=== PATIENT | male | born 1950 | race Caucasian/White ===

== ENCOUNTER 2019-07-29 10:31 | Observation (INO) | payer MEDICARE, OTHER, SELFPAY ==
[2019-07-29] VITALS (8 sets, daily range): BP systolic 135–179; BP diastolic 77–102; PULSE 60–75; RESP 11–18; TEMP 36.5–36.7; O2SAT 94–98; BMI 30.5; BMI 31.1
[2019-07-29] MEDS: 0.9% Normal Saline 1,000 ML 500 ML IV (10:32)
[2019-07-29 10:41] LABS: Bedside Glucose 105 mg/dL (70-110)
--- NOTE | 2019-07-29 10:44 | CT_ITS ---
STUDY: CT BRAIN WITHOUT CONTRAST REASON FOR EXAM: Male, 69 years old. Left-sided weakness. Near syncopal episode. RADIATION DOSAGE (If Supplied By Facility): CTDIvol = ( 44.99 ) mGy, DLP = ( 812.98 ) mGycm TECHNIQUE: Transaxial CT imaging of the brain was performed without administration of intravenous contrast material. Individualized dose optimization techniques were used for this CT. COMPARISON: No relevant priors. FINDINGS: Normal soft tissue structures. Normal calvarium. Normal size ventricles and extra-axial spaces for the patient's age. Normal white matter tracts of the cerebral hemispheres. Normal basal ganglia and thalami. Normal brainstem. Normal cerebellum. There is no intracranial hemorrhage. There are no findings of an acute ischemic infarction. There is opacification of the left maxillary sinus. CT/Brain/Head without Contrast IMPRESSION: Normal unenhanced CT scan of the brain. Opacification of the left maxillary sinus. Electronically Signed: Caio Carey, at 11:17 EDT , Service support ,
--- NOTE | 2019-07-29 10:44 | EKG12_ITS ---
Test Reason : NEURO SYMPTOMS Blood Pressure : / mmHG Vent. Rate : 066 BPM Atrial Rate : 066 BPM P-R Int : 132 ms QRS Dur : 084 ms QT Int : 414 ms P-R-T Axes : 000 014 020 degrees QTc Int : 434 ms Normal sinus rhythm Normal ECG Confirmed by CHICO DELA CRUZ, SUSHANT ([id number]), scientific editor BRIA TRISTAN ([id number]) on 07/31/2019 10:24:16 A M Referred By: SHEILA/SHAHEED Confirmed By:FABIOLA GOLDEN MD
--- NOTE | 2019-07-29 11:09 | ED.VISSUMM ---
- ER Visit Summary Date of Service: 07/29/19 Chief Complaint: Sudden onset of left facial and arm numbness with near syncope History of Present Illness: The patient is a 69 M 3 of reflux and hypertension. No prior stroke or TIA. Patient states that he was driving around 930 this morning and had sudden onset of left facial numbness and left arm. [place] like he might pass out but did not pass out. And had to stop driving his car. May or may not had some less visual changes since resolved. Never had anything like this before. Denies any headache. No chest pain. No abdominal pain. No shortness of breath. Prior to the event he felt fine. He is improving but states he still does have some mild numbness to his left face and arm. Denies any weakness. Physical Examination: Older male no acute distress vital signs are stable afebrile. Initial blood pressure 179/102. He does not look septic or toxic. He is in no distress. There is multiple family members at bedside. HEENT exam pupils are unreactive light. Extra motions are intact. No facial droop. Able to open close mouth any difficulty. Able to puff out his cheeks bilaterally. Neck nontender. No bruits appreciated. Lungs clear to auscultation bilaterally. Heart regular rhythm no murmur. Rate about 70. Abdomen soft nontender normal bowel sounds no peritoneal signs. Patient moving all 4 extremities. There is no motor weakness. He has 5-5 parts cataloguer strength bilaterally. 5 out of 5 dorsi plantar flexion. He can raise and hold both upper extremities and lower extremities in the ER without any drift. Subjectively he states there is some mild numbness to his left arm. Neurologically is awake and alert. Normal speech. No facial droop. External motions are intact. Equal symmetrical parts cataloguer strength. Equal symmetrical dorsi plantarflexion. No ataxia with [id number] or [id number]. Subjectively again he has no numbness to left side of his face without a facial droop. And his left arm. No motor deficits. He is awake and alert. Acting appropriately. NIH score is at most 8 1 NS due to subjective numbness in his left upper extremity and face. Test Results: CBC normal white count of 5. Hemoglobin 15. Chemistries normal normal creatinine gap. Troponin normal. EKG normal sinus rhythm rate 66 with no acute signs of dysrhythmia nor CT nor ischemia. CT of the brain without contrast shows no acute abnormality. Some left maxillary sinus opacification. Read by the radiologist and reviewed by me. Portable chest x-ray one view read by myself shows no acute abnormality. Normal cardiac silhouette and mediastinum. Emergency Department Course and Treatment: Patient has basically a normal exam except for subjective numbness. He is already obtained a CAT scan which I reviewed waiting on the radiologist interpretation. Screening labs are being obtained. He will need to be admitted for further evaluation. At this time his NIH score is at most a 1. His symptoms are improving. Repeat exam patient is doing well at 11:55 AM. He is actually feeling better his exam is not changed. He still states he has some subjective numbness to his left face and arm but he has no motor weakness or droop and his NIH score again is 0-1 at worst. I discussed all test results of both he and his family. Treatment Plan: Hospitalist on page for admission for further evaluation. Disposition: Admission Impression: Acute left-sided facial and arm numbness of uncertain etiology This note was generated with [employer] dictation software. It may contain incorrect words, spelling, and punctuation that were not noted in review of the chart prior to signing ED Disposition - Plan for ED Patient: Referrals: Jhonny Centeno DO [Primary Care Provider] -
[2019-07-29 11:13] LABS: Absolute Lymphocyte Count 1.92 X10^3/uL (0.83-4.51); Absolute Neutrophil Count 3.4 X10^3/uL (2.0-7.7); Basophil# 0.05 X10^3/uL; Basophil% 0.8 % (0-1); Eosinophil# 0.04 X10^3/uL; Eosinophils% 0.7 % (0-5); Hematocrit 45.7 % (40-54); Hemoglobin 15.7 g/dL (13.0-16.5); Lymphocyte # 1.92 X10^3/ul (4.0); Lymphocyte % 32.4 % (19-41); Mean Corp Hgb Conc 34.4 g/dL (32-36); Mean Corpuscular Hgb 30.7 pg (27.0-32.0); Mean Corpuscular Volume 89.4 fL (80-94); Mean Platelet Vol. 8.4 fl (6.2-12.0); Monocyte# 0.51 X10^3/uL; Monocyte% 8.6 % (0-10); NRBC Flagged by Analyzer 0 % (0-5); Neutrophil # 3.37 X10^3/uL (2.7-7.7); Platelet Count 221 K/mm3 (150-450); RBC Distribution Width CV 11.9 % (11.6-14.6); RBC Distribution Width SD 39.4 fl (35.1-43.9); Red Blood Count 5.11 M/mm3 (4.6-6.2); White Blood Count 5.9 K/mm3 (4.4-11.0)
[2019-07-29 11:14] LABS: Anion Gap 4 (5-15); BUN 15 mg/dL (7-18); BUN/Creat Ratio 15.9 RATIO (10-20); Calcium,Total 8.7 mg/dL (8.5-10.1); Chloride 106 mmol/L (98-107); Creatinine, Serum 0.95 mg/dL (0.70-1.30); EST Glomerular Filtration Rate 84 mL/min (>60); Est Glom Filt Rate - Afr Amer 102 mL/min (>60); Estimated Creatinine Clearance 75.45 ml/min; Glucose 93 mg/dL (74-106); Potassium 3.9 mmol/L (3.5-5.1); Sodium Level 138 mmol/L (136-145)
--- NOTE | 2019-07-29 11:48 | RAD_ITS ---
STUDY: X-RAY CHEST REASON FOR EXAM: Male, 69 years old. NEAR SYNCOPE AND LT SIDED NUMBNESS. TECHNIQUE: Single AP portable view of the chest. COMPARISON: November 15, 2017 FINDINGS: Cardiac monitoring leads are present. Low lung volumes noted otherwise the lungs are clear. There is no demonstrated pleural abnormality. Normal size heart. Normal mediastinum and maria fernanda. Normal visualized pulmonary arteries. Normal visualized aortic arch and descending thoracic aorta. Normal visualized thoracic spine. Normal visualized ribs, clavicles, and shoulders. There is no demonstrated abnormality of the visualized soft tissue structures of the upper abdomen. RAD/Chest 1 View (Portable) IMPRESSION: No acute intrathoracic process. Low lung volumes noted. Electronically Signed: Marli Denton MD at 12:25 EDT , Service support ,
[2019-07-29] MEDS: 0.9% Normal Saline 1,000 ML 999 ML IV (11:51)
--- NOTE | 2019-07-29 12:15 | ED.RN ---
per dr. dolan do not continue NIH. pt is not a stroke team.
--- NOTE | 2019-07-29 12:17 | ED.RN ---
1120 pt states that his sensation is returning.
--- NOTE | 2019-07-29 12:29 | CT_ITS ---
STUDY: CTA HEAD AND NECK WITH CONTRAST REASON FOR EXAM: Male, 69 years old. Left-sided weakness. RADIATION DOSAGE (If Supplied By Facility): CTDIvol = ( 17.46 ) mGy, DLP = ( 883.03 ) mGycm TECHNIQUE: CT angiography was performed with a multi-detector CT scanner. Data acquisition was obtained from the skull base through the vertex following intravenous administration of IV Isovue 370 100. MIP images were reconstructed from the axial data set. Post-processing of the angiographic images was performed, with multiplanar reformation and 3D reconstruction. Individualized dose optimization techniques were used for this CT. COMPARISON: No relevant priors. FINDINGS: Normal bilateral petrous carotid arteries. Normal right cavernous carotid artery with a normal supraclinoid bifurcation. Normal left cavernous carotid artery with a normal supraclinoid bifurcation. Normal right A1 segments of the anterior cerebral artery. Normal left A1 segments of the anterior cerebral artery. Normal intact anterior communicating artery (ACOM). Normal bilateral A2 segments of the anterior cerebral arteries. Normal right M1 and M2 segments of the middle cerebral arteries, with a normal M1 bifurcation. Normal left M1 and M2 segments of the middle cerebral arteries, with a normal M1 bifurcation. Normal right posterior communicating artery (PCOM). Normal left posterior communicating artery (PCOM). Normal bilateral vertebral arteries. Normal basilar artery with a normal basilar bifurcation. The visualized bilateral superior cerebellar (SCA) arteries are normal. Normal bilateral P1, P2 and visualized P3 segments of the posterior cerebral arteries. There is no demonstrated aneurysm of the [place] of [place]. There is no demonstrated abnormality of the visualized brain. AORTIC ARCH: Normal visualized aortic arch. Normal origins of the brachiocephalic, left common carotid, and left subclavian arteries. RIGHT CAROTID ARTERIES: Normal right common carotid artery (CCA). Normal right common carotid bulb. Normal origin of the right internal carotid (ICA) artery without a hemodynamically significant stenosis. Normal visualized cervical portion of the right internal carotid artery. Normal origin of the right external carotid artery (ECA). LEFT CAROTID ARTERIES: Normal left common carotid artery (CCA). Normal left common carotid bulb. There is mild atherosclerotic plaque formation of the origin of the left internal carotid artery with less than 50% cross sectional diameter stenosis. Normal visualized cervical portion of the left internal carotid artery. Normal origin of the left external carotid artery (ECA). VERTEBRAL ARTERIES: Normal bilateral vertebral arteries. CT/CTA Head AND Neck W/ Contrast IMPRESSION: Minimal degree of calcific plaque at the origin of the left internal carotid artery. Electronically Signed: Caio Carey, at 15:14 EDT , Service support ,
--- NOTE | 2019-07-29 13:04 | MRI_ITS ---
STUDY: MRI BRAIN WITHOUT CONTRAST REASON FOR EXAM: Male, 69 years old. L sided numbness arm and face earlier today TECHNIQUE: Standardized multiplanar fat and water weighted pulse sequences were obtained. COMPARISON: CT brain and CTA brain same date FINDINGS: Normal size of the ventricles and extra-axial spaces for the patient's age. There are a limited number of small white matter hyperintensities, distributed throughout the deep white matter tracts of the cerebral hemispheres, consistent with mild chronic white matter ischemic changes. There is no evidence for recent intracranial ischemia or other cause of cytotoxic edema on diffusion weighted imaging (DWI). Normal bilateral basal ganglia. Normal thalami. There is no extra-axial fluid accumulation. Normal flow voids within the major intracranial circulation suggesting patency by spin echo criteria. Normal sella turcica, pituitary gland, infundibular stalk, optic chiasm and hypothalamus. Normal tectal plate and pineal gland. Normal midbrain, yas and medulla. Normal cerebellum. Normal basal cisterns. Normal bilateral temporal bones. Normal bilateral internal auditory canals. No demonstrated orbital abnormality, within the constraints of a routine brain study. Prominent mucoperiosteal thickening of the left maxillary antrum with internal debris noted. Minimal right maxillary mucoperiosteal thickening noted. Normal calvarium and skull base. Normal visualized soft tissue structures. Normal visualized upper cervical spine. MRI/Brain without Contrast IMPRESSION: Normal unenhanced MRI of the brain. Left maxillary sinus disease with mucoperiosteal thickening and debris, consider acute on chronic sinus disease. Electronically Signed: Marli Denton MD at 15:26 EDT , Service support ,
--- NOTE | 2019-07-29 13:04 | ECHOCS_ITS ---
Reason For Study: TIA/STROKE Procedure This was a 2D Doppler, Color Flow transthoracic echocardiogram. Exam performed portable in patient room. Left Ventricle Normal size and thickness. The estimated ejection fraction is 65 %. Stage 1 diastolic dysfunction. No regional wall motion abnormalities noted. Right Ventricle Normal size and thickness. Normal systolic function. Atria Normal left atrium. Normal right atrium. Normal atrial septum. Bubble contrast study negative for right to left interatrial shunt. Mitral Valve The mitral valve is structurally normal. No prolapse or stenosis seen. Tricuspid Valve Normal tricuspid valve. Unable to estimate RV systolic pressure due to insufficient tricuspid regurgitant envelope. Aortic Valve Normal aortic valve. Trisinus/trileaflet aortic valve. Pulmonic Valve Normal pulmonic valve. Trivial pulmonic valve insufficiency. Great Vessels Normal aortic root. Normal arch. Normal inferior vena cava. Inferior vena cava collapse with sniff. Pericardium/Pleural No pericardial effusion. Medication Diluted definity 3ml given slow IV push to enhance endocardial definition. Performed a rapid injection of agitated mix of 9 cc saline and 1cc air to assess for atrial septal defect. MMode/2D Measurements & Calculations LVIDd: 4.2 cm IVSd: 1.1 cm Ao root diam: 3.3 cm LVIDs: 2.8 cm LVPWd: 1.2 cm RVDd: 3.1 cm FS: 32.8 % LAV(MOD-bp): 40.2 ml LVAd ap4: 31.0 cm2 SV(MOD-sp4): 60.4 ml LAV(MOD-bp) Indexed: 19.2 ml/m2 EDV(MOD-sp4): 95.2 ml LAV(MOD-sp2): 41.9 ml EDV(sp4-el): 100.2 ml LAV(MOD-sp4): 31.8 ml LVAs ap4: 17.6 cm2 ESV(MOD-sp4): 34.8 ml ESV(sp4-el): 34.8 ml EF(MOD-sp4): 63.4 % EF(sp4-el): 65.3 % SV(sp4-el): 65.4 ml LA A4 area: 12.7 cm2 LA dimension(2D): 3.7 cm RA A4 area: 12.9 cm2 Time Measurements MV dec time: 0.35 sec Doppler Measurements & Calculations MV E max wm: 74.1 cm/sec Lat Peak E' Wm: 8.9 cm/sec Med Peak E' Wm: 9.7 cm/sec MV A max wm: 93.7 cm/sec E/E' lat: 8.3 E/E' med: 7.6 MV E/A: 0.79 Ao V2 max: 124.0 cm/sec LV V1 max: 111.8 cm/sec PA V2 max: 151.0 cm/sec Ao max P.1 mmHg LV V1 max P.0 mmHg Interpretation Summary The estimated ejection fraction is 65 %. Stage 1 diastolic dysfunction. Unable to estimate RV systolic pressure due to insufficient tricuspid regurgitant envelope. Bubble contrast study negative for right to left interatrial shunt. There is no comparison study available. The study was technically difficult. Contrast injection was performed. Ordering Physician: Stella Rodriguez Referring Physician: FAHEEM FONTAINE Performed By: Nissa Nath RDCS
[2019-07-29 13:26] LABS: AST(SGOT) 22 U/L (15-37); Alanine Aminotransfer ALT/SGPT 33 U/L (16-61); Alkaline Phosphatase 70 U/L (45-117); Bilirubin, Direct 0.17 mg/dL (0.00-0.30); Globulin 3.6 g/dL (2.2-4.2); Magnesium 2.1 mg/dL (1.6-2.6); Phosphorus 2.3 mg/dL (2.5-4.9); Protein, Total 7.6 g/dL (6.4-8.2)
--- NOTE | 2019-07-29 15:10 | PCM.HP.STD ---
<Amaury Landry - Last Filed: 07/29/19 15:18> Problem List (1) CVA (cerebral vascular accident) Status: Acute (2) GERD (gastroesophageal reflux disease) Status: Chronic (3) HTN (hypertension) Status: Chronic (4) Osteoarthritis Status: Chronic (5) Hyperlipidemia Status: Chronic History of Present Illness Date of Admission: 07/29/19 Chief Complaint: left sided numbness The patient is a 69 year old M with pmhx of HTN, GERD, former smoker, who presents to the ER with c/o Left sided numbness in his face and arm. He was in his usual state of health, however when he was driving today at about 0930 suddenly the left side of his face and his left arm went numb, he felt dizzy, had blurry vision, and was somewhat confused. Fortunately he was able to pull the truck over at a business, get out and ask for help. They called 911. When he tried to walk he was unsteady on his feet and had to hold on for support. He was brought to the ER by squad. His symptoms gradually resolved over the next hour. No slurred speech or facial droop. He now has some residual left facial numbness. He denies headache, denies chest pain, palpitations, lower extremity numbness, no muscle weakness. He denies hx stroke. In the ER CT brain was negative. EKG was unremarkable. Blood pressure is somewhat elevated. He reports last week he had sinus congestion and runny nose, there is sinusitis on his CT brain. [] Past Medical History Past Medical History (Chronic Problems): Chronic Problems Low HDL (under 40) (Chronic) GERD (gastroesophageal reflux disease) (Chronic) HTN (hypertension) (Chronic) Osteoarthritis (Chronic) Hyperlipidemia (Chronic) Allergies No Known Allergies Allergy (Verified 07/29/19 10:37) Home Medications: Ambulatory Orders Medication Instructions Recorded Lisinopril [Zestril] 10 mg PO DAILY 11/15/17 Acetaminophen [Tylenol Arthritis] 650 mg PO DAILY PRN PRN 07/29/19 Pantoprazole Sodium [Protonix] 20 mg PO DAILY 07/29/19 Aspirin [Aspirin, Baby] 81 mg PO DAILY@0800 tab.chew 07/30/19 Atorvastatin Calcium [Lipitor] 40 mg PO QHS #30 tab 07/30/19 Surgical History: total hip arthroplasty - Left and right, tonsillectomy, - - History of foot surgery Psychiatric History: No pertinent psych hx Lives: Spouse/ Significant Other Smoking Status: Former smoker Tobacco Use: Non-smoker Alcohol: Rare Drugs: None - *Family History Maternal History Items: Heart Disease Paternal History Items: Cancer - prostate, Heart Disease Sibling History Items: Heart Disease - [place] at age 65 in brother Review of Systems Constitutional: Denies: Chills, Fever, Weight Change Eyes: Reports: Vision Change. Denies: Double vision, Pain HEENT: Reports: Nasal Congestion, Sinus Congestion, Visual Changes. Denies: Head Aches, Hearing Changes, Post Nasal Drip, Sinus Drainage, Sore Throat Cardiovascular: Reports: Light Headedness. Denies: Chest Pain, Chest Pressure, Chest Tightness, Edema, Orthopnea, Palpitations, Paroxysmal Noc. Dyspnea, Syncope Respiratory: Denies: Cough, Shortness of Breath, Shortness of breath at rest, Shortness of breath upon exertion, Sputum production, Wheezing Gastrointestinal: Denies: Abdominal Pain, Diarrhea, Nausea, Vomiting Genitourinary: Denies: Dysuria, Hesitancy, Urgency Musculoskeletal: Denies: Joint Pain, Joint Tenderness Skin: Denies: Lesions, Rash, Wounds Neurological: Reports: Balance problems, Blurred vision, Confusion, Incoordination, Numbness, Tingling. Denies: Double vision, Change in Speech, Slurred speech, Difficulty swallowing, Focal weakness, Headaches, Tremor, Seizures Psychiatric: Denies: Anxiety, Depression, Homicidal Ideations, Suicidal Ideations Hematologic/ Lymphatic: Denies: Easy Bruising, Easy Bleeding VTE Information - Inpt Only VTE Present on Admission: No VTE Mechan Device Prophylaxis: None VTE Pharm Prophylaxis ordered?: Yes - Physical Exam General: Alert, Oriented x3, Cooperative HEENT: Atraumatic, PERRLA, EOMI, Normocephalic Neck: Supple, No JVD, Negative Carotid Bruits Lungs: Clear to auscultation, Normal air movement Cardiovascular: Regular rate, No murmurs Abdomen: Bowel Sounds Present, Soft, Non Tender Extremities: No edema, Capillary Refill Less than 3 Seconds Skin: No rashes, No breakdown Musculoskeletal: No Tenderness to Palpation of Joints or Extremities Neurological: Cranial nerves II-XII grossly intact, - - good primary substance abuse counselor strength BL, sensation intact, graphesthesia intact, point to point intact, rapid alternating movements intact, no pronator drift Psych/Mental Status: Normal Affect, Appropriate, Alert and oriented to time, place, person, mood and affect Vital Signs Temp Pulse Resp BP Pulse Ox 97.7 F L 62 16 148/92 H 97 07/29/19 13:15 07/29/19 13:21 07/29/19 13:15 07/29/19 13:15 07/29/19 13:15 Oxygen Delivery Method Room Air Weight: 210 lb 12.191 oz Body Mass Index (BMI) 31.1 Intake and Output for Last 24 Hours 07/27/19 07/28/19 07/29/19 23:59 23:59 23:59 Intake Total 1999 Balance 1999 Laboratory Tests Past 24 Hrs 07/29/19 07/29/19 07/29/19 10:40 10:40 10:40 WBC 5.9 RBC 5.11 Hgb 15.7 Hct 45.7 MCV 89.4 MCH 30.7 MCHC 34.4 RDW Std Deviation 39.4 RDW Coeff of [place] 11.9 Plt Count 221 MPV 8.4 Immature Gran % (Auto) 0.500 Neut % (Auto) 57.0 Lymph % (Auto) 32.4 [place] % (Auto) 8.6 Eos % (Auto) 0.7 Baso % (Auto) 0.8 Absolute Neuts (auto) 3.4 Absolute Lymphs (auto) 1.92 Nucleated RBC % 0 Sodium 138 Potassium 3.9 Chloride 106 Carbon Dioxide 28.0 Anion Gap 4 L BUN 15 Creatinine 0.95 Estim Creat Clear Calc 75.45 Est GFR (MDRD) Af Amer 102 Est GFR (MDRD) Non-Af 84 BUN/Creatinine Ratio 15.9 Glucose 93 Calcium 8.7 Phosphorus Magnesium Total Bilirubin Direct Bilirubin AST ALT Alkaline Phosphatase Troponin I < 0.015 Total Protein Albumin Globulin 07/29/19 11:00 WBC RBC Hgb Hct MCV MCH MCHC RDW Std Deviation RDW Coeff of [place] Plt Count MPV Immature Gran % (Auto) Neut % (Auto) Lymph % (Auto) [place] % (Auto) Eos % (Auto) Baso % (Auto) Absolute Neuts (auto) Absolute Lymphs (auto) Nucleated RBC % Sodium Potassium Chloride Carbon Dioxide Anion Gap BUN Creatinine Estim Creat Clear Calc Est GFR (MDRD) Af Amer Est GFR (MDRD) Non-Af BUN/Creatinine Ratio Glucose Calcium Phosphorus 2.3 L Magnesium 2.1 Total Bilirubin 0.70 Direct Bilirubin 0.17 AST 22 ALT 33 Alkaline Phosphatase 70 Troponin I Total Protein 7.6 Albumin 4.0 Globulin 3.6 POC Glucose 07/29/19 10:36 POC Glucose 105 Assessment/Plan All Active Problems CVA (cerebral vascular accident) (Ruled-out) TIA (transient ischemic attack) (Acute) 1. Sudden onset left facial and upper extremity numbness - also ataxia, confusion, dizziness. He has slight residual left facial numbness. Concerning for CVA. No hx stroke. Hx HTN and former smoker, fm hx of cardiovascular disease, but not stroke specifically. Sinusitis on CT brain. MRI pending. CTA head and neck pending. Echo ordered. Blood work unremarkable. EKG NSR. Trop neg. Permissive HTN, PTOTST evals, FLP, TSH. Start asa/statin. No fever/leukocytosis. 2.HTN - permissive 3. GERD - ppi DVT ppx: lovenox DC planning: pending stroke work up This patient was seen by Amaury Landry PA-C under the supervision of Dr. Rodriguez. <JenniferStella Posey - Last Filed: 08/18/19 09:18> History of Present Illness The patient is a 69 year old M [] Past Medical History Allergies No Known Allergies Allergy (Verified 07/29/19 10:37) - Physical Exam Vital Signs Temp Pulse Resp BP Pulse Ox 97.8 F 67 18 158/83 H 98 07/30/19 15:20 07/30/19 15:20 07/30/19 15:20 07/30/19 15:20 07/30/19 15:20 Oxygen Delivery Method Room Air Weight: 210 lb 12.191 oz Body Mass Index (BMI) 31.1 Assessment/Plan I interviewed and examined the pt together with Amaury. He was driving and suddenly felt his LUE and left face go numb. this was associated with confusion and disorientation. He was able to get off the road and he was brought to the ED where a non-contrasted CTB was negative. Denies any hx of CV disease. He is a former smoker. Does not know his cholesterol. I agree with the PE as documented by Amaury with no exceptions. MRI of the brain and CTA's of the head and the neck have been ordered. ECHO ordered. Denies any hx of AF. He is on telemetry. Lipid panel in the AM. Orders have been written. Code Visit OBSV E&M: 27533 Initial observation care L3
[2019-07-29] MEDS: 0.9% Normal Saline 1,000 ML 100 ML IV (15:21)
[2019-07-29 16:07] LABS: Thyroid Stim Hormone (TSH) 2.56 uIU/mL (0.358-3.74)
[2019-07-29] MEDS: Acetaminophen 325 MG Tablet 650 MG PO (17:37)
[2019-07-29] MEDS: Atorvastatin Calcium 80 MG Tablet PO (21:14)
[2019-07-30] VITALS (7 sets, daily range): BP systolic 150–161; BP diastolic 83–98; PULSE 65–70; RESP 16–18; TEMP 36.6; O2SAT 97–98
[2019-07-30] MEDS: 0.9% Normal Saline 1,000 ML 100 ML IV ×2 (01:24→11:34)
[2019-07-30 06:53] LABS: Cholesterol 160 mg/dL (200); High Density Lipoprotein 25 mg/dL; Triglycerides 179 mg/dL; Very Low Density Lipoprotein 36 mg/dL (5-40)
[2019-07-30] MEDS: Aspirin 81 MG TAB.CHEW PO (09:20)
[2019-07-30] MEDS: Enoxaparin 40 MG/0.4 ML Syringe SC (09:20)
[2019-07-30] MEDS: Pantoprazole Sodium 20 MG Tablet PO (09:20)
--- NOTE | 2019-07-30 09:40 | CASEMGMT ---
SW reminded pt and that LW/POA are not on chart and asked them to bring in the documents as able. TESSA Bello
[2019-07-30] MEDS: Lisinopril 10 MG Tablet PO (12:01)
--- NOTE | 2019-07-30 12:13 | CASEMGMT ---
Case Management Progress Note: To patient bedside, currently eating lunch with family visiting. Introduced self and role, Explained PALACIO form in regards to his condition and treatment this hospital stay, Made aware and notified that outpatient billing is determined by his insurance policy and status during hospital stay is continually reviewed for changes in condition that may warrant inpatient stay. Patient stated understanding and denies any questions or concerns. PALACIO form signed and placed in patient chart, patient provided a copy. John Barton RNCM
--- NOTE | 2019-07-30 13:36 | PCM.CONS.GEN ---
Problem List (1) TIA (transient ischemic attack) Status: Acute Reason for Consult Date of Consultation: 07/30/19 Reason for Consultation: Possible TIA History of Present Illness: The patient is a 69 year old M H HTN, HLD admitted with acute onset left-sided face and arm numbness. Per patient yesterday 07/29/2019 when he was driving in the morning he felt acute onset left facial and left arm numbness along with dizziness and visual blurring, initially the symptoms lasted only for 5 to 10 minutes but per patient it took a few hours for him to feel at his baseline. Denies any focal motor weakness. He does not take baby aspirin at baseline. He denies any frequent falls, does not use any cane or walker, does drive, does not need any assistance for his ADLs. Per patient in November he was diagnosed with vertigo and per in June this year he may have had an episode of neck pain with left arm tingling or numbness. At present he denies any focal motor weakness, sensory loss, visual disturbances, headache, dizziness, neck pain, lower back pain, radicular symptoms. MRI brain done on admission did not show any acute stroke. CTA head/neck did not show any hemodynamically significant stenosis or occlusion. [] Past Medical History Past Medical History (Chronic Problems): Chronic Problems GERD (gastroesophageal reflux disease) (Chronic) HTN (hypertension) (Chronic) Osteoarthritis (Chronic) Hyperlipidemia (Chronic) Allergies No Known Allergies Allergy (Verified 07/29/19 10:37) Home Medications: Ambulatory Orders Medication Instructions Recorded Lisinopril [Zestril] 10 mg PO DAILY 11/15/17 Acetaminophen [Tylenol Arthritis] 650 mg PO DAILY PRN PRN 07/29/19 Pantoprazole Sodium [Protonix] 20 mg PO DAILY 07/29/19 Surgical History: total hip arthroplasty - Left and right, tonsillectomy, - - History of foot surgery Psychiatric History: No pertinent psych hx Lives: Spouse/ Significant Other Smoking Status: Former smoker Tobacco Use: Non-smoker Alcohol: Rare Drugs: None - *Family History Maternal History Items: Heart Disease Paternal History Items: Cancer - prostate, Heart Disease Sibling History Items: Heart Disease - [place] at age 65 in brother Review of Systems Constitutional: Reports: - - Complete ROS negative except as documented in HPI Patient Problems: Active and Suspected Problems CVA (cerebral vascular accident) (Acute) TIA (transient ischemic attack) (Acute) - Physical Exam General: Alert HEENT: Normocephalic Neck: Supple Lungs: Normal air movement Cardiovascular: Normal S1, Normal S2 Abdomen: Bowel Sounds Present Extremities: No cyanosis Neurological: - - Conscious, alert, AOA x3, CN II through XII grossly intact, power 5 x 5 both upper and lower extremities, no sensory loss, no cerebellar signs, gait deferred, reflexes + B/L B/S/T/K/A, NIHSS 0 at present, mRS 0 at baseline Psych/Mental Status: Normal Affect Vital Signs Temp Pulse Resp BP Pulse Ox 97.8 F 69 16 161/98 H 97 07/30/19 09:20 07/30/19 09:20 07/30/19 09:20 07/30/19 09:20 07/30/19 09:20 Oxygen Delivery Method Room Air Weight: 95.6 kg Body Mass Index (BMI) 31.1 Intake and Output for Last 24 Hours 07/28/19 07/29/19 07/30/19 23:59 23:59 23:59 Intake Total 3316.67 / 3316.67 33 / 1992.33 Balance 3316.67 / 3316.67 / 1992.33 Laboratory Tests Past 24 Hrs 07/29/19 07/29/19 07/30/19 10:40 10:40 06:14 Phosphorus 2.3 L Magnesium 2.1 Total Bilirubin 0.70 Direct Bilirubin 0.17 AST 22 ALT 33 Alkaline Phosphatase 70 Total Protein 7.6 Albumin 4.0 Globulin 3.6 Triglycerides 179 Cholesterol 160 LDL Cholesterol 99 VLDL Cholesterol 36 HDL Cholesterol 25 L TSH 2.56 Assessment/Plan All Active Problems CVA (cerebral vascular accident) (Acute) TIA (transient ischemic attack) (Acute) Heartburn symptom (Acute) Chest pain (Acute) The patient is a 69 year old M H HTN, HLD admitted with acute onset left-sided face and arm numbness. Per patient yesterday 07/29/2019 when he was driving in the morning he felt acute onset left facial and left arm numbness along with dizziness and visual blurring, initially the symptoms lasted only for 5 to 10 minutes but per patient it took a few hours for him to feel at his baseline. Denies any focal motor weakness. He does not take baby aspirin at baseline. He denies any frequent falls, does not use any cane or walker, does drive, does not need any assistance for his ADLs. Per patient in November he was diagnosed with vertigo and per in June this year he may have had an episode of neck pain with left arm tingling or numbness. At present he denies any focal motor weakness, sensory loss, visual disturbances, headache, dizziness, neck pain, lower back pain, radicular symptoms. MRI brain done on admission did not show any acute stroke. CTA head/neck did not show any hemodynamically significant stenosis or occlusion. Impression Possible TIA Plan ?Aspirin 81 mg p.o. once daily. Side effects discussed with patient in detail and bleeding risk discussed in detail. ABCD 2 score of 2. ?Lipitor 40 mg p.o. nightly ?MRI brain and CT angiogram head/neck report reviewed ?TTE EF 65%, normal LA size, no PFO ?HbA1c?pending, LDL?99 ?PT/OT/ST ?GI/DVT prophylaxis ?Stroke risk factors discussed and stroke education provided ?30-day event recorder ?Fall precautions ?Long-term goal blood pressure less than 130/80 mmHg and goal HbA1c less than 7% ?Follow-up with neurology as outpatient in 4 weeks ?Please call with questions if any ?Thank you for allowing us to participate in patient's care and management This note has been generated using [employer] dictation software. It may contain incorrect words, spellings and punctuation that were not noted in the review of the note prior to signing Code Visit Inpatient E&M: 84403 Init Hosp L3
[2019-07-30 14:12] LABS: Hemoglobin A1c 5.4 % (4.2-6.3)
--- NOTE | 2019-07-30 15:50 | PCM.DC ---
- Discharge Diagnoses Current Active Problems: Current Active and Chronic Problems GERD (gastroesophageal reflux disease) (Chronic) CVA (cerebral vascular accident) (Acute) HTN (hypertension) (Chronic) TIA (transient ischemic attack) (Acute) You will use the following diet at home:: Cardiac - low salt, low fat Your food should be the consistency of: Regular Your liquids should be the consistency of: Regular/Thin Discharge Activity: Return to Normal Activity May resume sexual activity in: No Restrictions Call your doctor if you observe: Fever of 101 or Higher, Numbness or Tingling, Shortness of breath, Dizziness, Fainting spells, Chest pain, Calf discomfort, - - slurred speech, inability to get your words out, unilateral numbness or weakness, sudden loss of vision, sudden loss of hearing, facial droop Instructions: What Is a TIA?, Symptoms of Stroke, What Is Atrial Flutter/Atrial Fibrillation? Additional Instructions: The ECHO was normal. The CT scan of the arteries in the head and the neck showed no significant narrowing of the major arteries. The MRI of the brain did not show a stroke. Your LDL, bad cholesterol, is a little high at 99. If you have had a TIA, stroke or heart disease the recommendations are to keep the LDL 70 or less. The BP should be less than 130/80. Because of the episodic lightheadedness we are sending you home with a 30 day event monitor to monitor the heart rhythm to look for atrial fibrillation. Dr. Freire would like you to follow up in the neurology office in 4 weeks. Pending Tests on Discharge: none Allergies/Adverse Reactions: Allergies No Known Allergies Allergy (Verified 07/29/19 10:37) Medications to take at Discharge Lisinopril [Zestril] 10 mg PO DAILY 11/15/17 Acetaminophen [Tylenol Arthritis] 650 mg PO DAILY PRN PRN 07/29/19 Pantoprazole Sodium [Protonix] 20 mg PO DAILY 07/29/19 Aspirin [Aspirin, Baby] 81 mg PO DAILY@0800 tab.chew 07/30/19 Atorvastatin Calcium [Lipitor] 40 mg PO QHS #30 tab 07/30/19 The following prescriptions were given: Atorvastatin Calcium [Lipitor] 40 mg PO QHS #30 tab Transmission Status: Pending to [facility] Primary Care Physician: Jhonny Centeno DO [Primary Care Provider] - Please follow up with your Primary Care Physician in: 1-2 weeks Test Results: Test results from this visit will be discussed in further detail at your follow-up appointment, if applicable. Please Follow Up With: [facility] Please Follow Up With: Danielle Freire MD When: 4 weeks Proposed Discharge Date: 07/30/19
--- NOTE | 2019-07-30 16:01 | PCM.DC.SUM ---
Discharge Date and Diagnosis Date of Admission: 07/29/19 Date of Discharge: 07/30/19 - Primary Discharge Diagnosis Active and Suspected Problems TIA (transient ischemic attack) (Acute) Hypophosphatemia - Secondary Discharge Diagnosis Chronic Problems Low HDL (under 40) (Chronic) GERD (gastroesophageal reflux disease) (Chronic) HTN (hypertension) (Chronic) Osteoarthritis (Chronic) Hyperlipidemia (Chronic) Stage I diastolic dysfunction Hospital Course and Treatment Imaging Results: Clinical Impression(s) from Imaging Studies Brain CT 07/29/19 10:44 IMPRESSION: Normal unenhanced CT scan of the brain. Opacification of the left maxillary sinus. Electronically Signed: Caio Carey, at 11:17 EDT , Service support , Chest X-Ray 07/29/19 11:48 IMPRESSION: No acute intrathoracic process. Low lung volumes noted. Electronically Signed: Marli Denton MD at 12:25 EDT , Service support , Head/Neck CTA 07/29/19 12:29 IMPRESSION: Minimal degree of calcific plaque at the origin of the left internal carotid artery. Electronically Signed: Caio Carey, at 15:14 EDT , Service support , Brain MRI 07/29/19 13:04 IMPRESSION: Normal unenhanced MRI of the brain. Left maxillary sinus disease with mucoperiosteal thickening and debris, consider acute on chronic sinus disease. Electronically Signed: Marli Denton MD at 15:26 EDT , Service support , Laboratory Results - last 24 hr 07/29/19 07/30/19 10:40 06:14 Hemoglobin A1c 5.4 Triglycerides 179 Cholesterol 160 LDL Cholesterol 99 VLDL Cholesterol 36 HDL Cholesterol [address] Elie Freire-neurology Operations: None Procedures: 2-D Echocardiogram - Interpretation Summary The estimated ejection fraction is 65 %. Stage 1 diastolic dysfunction. Unable to estimate RV systolic pressure due to insufficient tricuspid regurgitant envelope. Bubble contrast study negative for right to left interatrial shunt. There is no comparison study available. The study was technically difficult. Contrast injection was performed. Summary of Care Provided: The patient is a 69 year old M with a past medical history of hypertension, GERD, tobacco dependence in remission and osteoarthritis who presented to the emergency department at [facility] on 07/29/2019 complaining of sudden onset of numbness in his left arm and left face while driving. He additionally felt lightheaded/dizzy and had blurred vision. Vital signs at presentation to the emergency room were temperature 98, pulse rate 71, blood pressure 179/102, respiratory rate 11 and he was 96% saturated on room air. Emergent noncontrasted CT scan of the brain was normal. CTA of the head and neck was unremarkable. CBC was normal. BMP was normal. LFTs were normal. Troponin was less than 0.015. Chest x-ray showed no infiltrates, pleural effusions or pulmonary vascular congestion. He was admitted to a monitored bed on PCU and the stroke protocol was initiated. Echocardiogram showed stage I diastolic dysfunction with a 65% EF. The atria were normal. There was no significant valvular heart disease. MRI of the brain was normal except for chronic left maxillary sinus disease with mucoperiosteal thickening. Telemetry showed normal sinus rhythm with no significant ectopy. There was no atrial fibrillation. Lipid panel revealed triglycerides of 179 and a total cholesterol of 160. The LDL was 99 and the HDL was 25. TSH and hemoglobin A1c were normal. He was seen in consultation by Dr. Freire who agreed with discharge on aspirin 81 mg daily and atorvastatin 40 mg daily. The patient reported that he has episodic lightheadedness that lasts 30 to 60 seconds. A 30-day event monitor was ordered at admission to exclude atrial fibrillation as etiology of the TIA. He will follow-up with his primary care physician in the office in 1 to [address] Freire in the office in 4 weeks. He will need a lipid panel and liver profile in 6 weeks after starting atorvastatin. PHYSICAL EXAM: GENERAL: alert, oriented X 3, Cooperative, NAD ORAL: moist mucosa, no mucosal lesions NECK: No JVD, supple, trachea midline LUNGS: CTA, symmetric chest expansion HEART: RRR, Normal S1 and S2, no rub, no gallop ABDOMEN: soft, NT, ND, BS present, no guarding with palpation EXTREMITIES: no edema, no cyanosis, no calf tenderness SKIN: No rashes, no breakdown NEUROLOGIC: no focal neurologic deficits PSYCH: appropriate, normal affect, pleasant This note was generated with [employer] dictation software. It may contain incorrect words, spelling, and punctuation that were not noted in checking the note before signing. - Physical Exam Vital Signs Temp Pulse Resp BP Pulse Ox 97.8 F 67 18 158/83 H 98 07/30/19 15:20 07/30/19 15:20 07/30/19 15:20 07/30/19 15:20 07/30/19 15:20 Oxygen Delivery Method Room Air Weight: 210 lb 12.191 oz Body Mass Index (BMI) 31.1 Intake and Output for Last 24 Hours 07/28/19 07/29/19 07/30/19 23:59 23:59 23:59 Intake Total 3316.67 / 3316.67 Balance 3316.67 / 3316.67 Laboratory Tests Past 24 Hrs 07/29/19 07/29/19 07/30/19 10:40 10:40 06:14 Hemoglobin A1c 5.4 Triglycerides 179 Cholesterol 160 LDL Cholesterol 99 VLDL Cholesterol 36 HDL Cholesterol 25 L TSH 2.56 Discharge Activity: Return to Normal Activity May resume sexual activity in: No Restrictions Call your doctor if you observe: Fever of 101 or Higher, Numbness or Tingling, Shortness of breath, Dizziness, Fainting spells, Chest pain, Calf discomfort, - - slurred speech, inability to get your words out, unilateral numbness or weakness, sudden loss of vision, sudden loss of hearing, facial droop Home Medications: Medications to take at Discharge Lisinopril [Zestril] 10 mg PO DAILY 11/15/17 Acetaminophen [Tylenol Arthritis] 650 mg PO DAILY PRN PRN 07/29/19 Pantoprazole Sodium [Protonix] 20 mg PO DAILY 07/29/19 Aspirin [Aspirin, Baby] 81 mg PO DAILY@0800 tab.chew 07/30/19 Atorvastatin Calcium [Lipitor] 40 mg PO QHS #30 tab 07/30/19 Following Prescrptions Were Given to Patient: Atorvastatin Calcium [Lipitor] 40 mg PO QHS #30 tab Transmission Status: Received by [facility] Other Amb Orders: 30-Day Event Recorder [[facility]] Location: None Selected Primary Care Physician: Jhonny Centeno DO [Primary Care Provider] - Please follow up with your Primary Care Physician in: 1-2 weeks Please Follow Up With: [facility] Please Follow Up With: Danielle Freire MD When: 4 weeks Patient Instructions: What Is Atrial Flutter/Atrial Fibrillation?, Symptoms of Stroke, What Is a TIA? Minutes spent on discharge:: 35 Patient Condition:: Good Medical Necessity - Tobacco Use Smoking Status: Former smoker Tobacco Use: Non-smoker Meaningful Use Info Meaningful Use Diagnoses (Choose all that apply): None applicable Code Visit OBSV E&M: 06157 Observation care discharge
== END 2019-07-30 16:00 | disposition home or self-care (01) ==
LOC: ED 12:31 → PCU 13:19
PROVIDERS: Physician Assistant; Psychiatry & Neurology Neurology; Admitting Provider Internal Medicine; Emergency Provider Emergency Medicine; Family Provider Family Medicine; PCP Family Medicine; Visit Provider Internal Medicine
DX: G45.9 Transient cerebral ischemic attack, unspecified (principal); E83.39 Other disorders of phosphorus metabolism; K21.9 Gastro-esophageal reflux disease without esophagitis; I10 Essential (primary) hypertension; E78.5 Hyperlipidemia, unspecified; M19.90 Unspecified osteoarthritis, unspecified site; Z79.899 Other long term (current) drug therapy; Z87.891 Personal history of nicotine dependence
CPT/HCPCS: 36415; 70450; 70496; 70498; 70551; 71045; 80048; 80061; 80076; 82962; 83036; 83735; 84100; 84443; 84484; 85025; 93005; 93306; 94762; 96360; 96361; 96372; 97161; 97802; 99218; 99285; J7030; Q9957; Q9967; A4216; C8929; G0378

== ENCOUNTER → 2020-01-16 07:20 | Outpatient (CLI) | payer MEDICARE, OTHER, SELFPAY ==
[2019-07-29 13:23] VITALS: BMI 31.1
--- NOTE | 2020-01-16 07:37 | MRI_ITS ---
STUDY: MRI BRAIN WITHOUT CONTRAST REASON FOR EXAM: Male, 69 years old. dizziiness x 6 months TECHNIQUE: Standardized multiplanar fat and water weighted pulse sequences were obtained. COMPARISON: [address] and MRI FINDINGS: Normal size of the ventricles and extra-axial spaces for the patient''s age. There are a limited number of small white matter hyperintensities, distributed throughout the deep white matter tracts of the cerebral hemispheres, consistent with mild chronic white matter ischemic changes. There is no evidence for recent intracranial ischemia or other cause of cytotoxic edema on diffusion weighted imaging (DWI). Normal T2* images of the brain without demonstrated susceptibility artifact. There is no demonstrated hemosiderin stain. Normal bilateral basal ganglia. Normal thalami. There is no extra-axial fluid accumulation. Normal flow voids within the major intracranial circulation suggesting patency by spin echo criteria. Normal sella turcica, pituitary gland, infundibular stalk, optic chiasm and hypothalamus. Normal tectal plate and pineal gland. Normal midbrain, yas and medulla. Normal cerebellum. Normal basal cisterns. Normal bilateral temporal bones. Normal bilateral internal auditory canals. No demonstrated orbital abnormality, within the constraints of a routine brain study. Left mucosal thickening of the maxillary sinuses present. Normal calvarium and skull base. Normal visualized soft tissue structures. Normal visualized upper cervical spine. MRI/Brain without Contrast IMPRESSION: Mild senescent changes as above with no evidence of acute intracranial bleed, mass or ischemia. Left maxillary sinus disease is noted. Electronically Signed: Chon Larsen DO at 11:08 EDT , Service support ,
== END ==
PROVIDERS: PCP Family Medicine; Referring Provider Nurse Practitioner Family; Visit Provider Nurse Practitioner Family
DX: R42 Dizziness and giddiness (principal)
CPT/HCPCS: 70551

== ENCOUNTER 2020-11-08 01:24 | Emergency (ER) | payer MEDICARE, OTHER, SELFPAY ==
[2019-07-29 13:23] VITALS: BMI 31.1
[2020-11-08 01:28] VITALS: BP 181/89; PULSE 55; RESP 18; TEMP 36.4; O2SAT 97; BMI 33.1
--- NOTE | 2020-11-08 01:32 | CT_ITS ---
STUDY: CT ABDOMEN AND PELVIS WITHOUT CONTRAST REASON FOR EXAM: Male, 70 years old. ABD PAIN mid to low since 10:00pm. Hx of GERD, CVA, TIA, HTN and HLD. RADIATION DOSAGE (If Supplied By Facility): CTDIvol = ( 19.19 ) mGy, DLP = ( 1090.73 ) mGycm TECHNIQUE: Transaxial images were obtained from the dome of the diaphragm to the symphysis pubis without oral contrast, and without intravenous contrast. Sagittal and coronal images were reconstructed. Individualized dose optimization techniques were used for this CT. COMPARISON: None. FINDINGS: There is minimal lower lobe atelectasis. The visualized portions of the heart are within normal limits. Normal liver. Normal gallbladder and extrahepatic biliary system. Normal spleen. Normal pancreas. Normal bilateral adrenal glands. Normal right kidney. There is a punctate stone left kidney without hydronephrosis. There is a small hiatal hernia. Is a minimal air-fluid level. Normal small intestine. There is moderate stool in the colon. The appendix is visualized and appears normal. There is partial atherosclerotic calcification of the abdominal aorta, without a demonstrated aneurysm. Normal inferior vena cava. Normal retroperitoneum. Normal urinary bladder. Normal visualized prostate gland. There is a small umbilical hernia containing fat. There are diffuse degenerative changes of the visualized lumbar spine. There are bilateral hip arthroplasties. CT/Abdomen/Pelvis without Cont IMPRESSION: Mild to moderate constipation. No visualized diverticulitis or significant diverticulosis. Small air-fluid level within the distal esophagus small hiatal hernia. Could consider esophagitis. Bilateral hip arthroplasties. Punctate Stone left kidney no hydronephrosis. Electronically Signed: Mary Jo Barr MD at 2:51 EST Tel , Service support ,
--- NOTE | 2020-11-08 01:33 | EKG12_ITS ---
Test Reason : DIZZY Blood Pressure : / mmHG Vent. Rate : 054 BPM Atrial Rate : 054 BPM P-R Int : 146 ms QRS Dur : 094 ms QT Int : 478 ms P-R-T Axes : 010 026 042 degrees QTc Int : 453 ms Sinus bradycardia Nonspecific T wave abnormality Abnormal ECG Confirmed by CARLOS DELA CRUZ, ERNESTO ([id number]), medical editor BRIA TRISTAN ([id number]) on 11/09/2020 9:28:37 AM Referred By: JHONY Confirmed By:ERNESTO GONZALEZ MD
[2020-11-08 01:39] VITALS: BP 180/88; PULSE 53; RESP 17; TEMP 36.4; O2SAT 97
[2020-11-08] MEDS: Morphine 4 MG/ML Syringe IV (01:52)
[2020-11-08] MEDS: 0.9% Normal Saline 1,000 ML 1000 ML IV (01:52)
[2020-11-08 01:56] LABS: Absolute Lymphocyte Count 2.13 X10^3/uL (0.83-4.51); Basophil# 0.04 X10^3/uL; Basophil% 0.5 % (0-1); Eosinophil# 0.06 X10^3/uL; Eosinophils% 0.8 % (0-5); Hematocrit 44.4 % (40-54); Hemoglobin 14.8 g/dL (13.0-16.5); Lymphocyte # 2.13 X10^3/ul (4.0); Lymphocyte % 27.4 % (19-41); Mean Corp Hgb Conc 33.3 g/dL (32-36); Mean Corpuscular Hgb 30.1 pg (27.0-32.0); Mean Corpuscular Volume 90.2 fL (80-94); Mean Platelet Vol. 8.3 fl (6.2-12.0); Monocyte# 0.52 X10^3/uL; Monocyte% 6.7 % (0-10); NRBC Flagged by Analyzer 0 % (0-5); Neutrophil # 5.01 X10^3/uL (2.7-7.7); Neutrophil % 64.3 % (47-70); Platelet Count 203 K/mm3 (150-450); RBC Distribution Width CV 12.1 % (11.6-14.6); RBC Distribution Width SD 40.2 fl (35.1-43.9); Red Blood Count 4.92 M/mm3 (4.6-6.2); White Blood Count 7.8 K/mm3 (4.4-11.0)
--- NOTE | 2020-11-08 02:03 | ED.VIS.GEN ---
History of Present Illness Chief Complaint: Abd Pain Narrative: Patient presents with 2 to 3-hour history of epigastric pain nausea and vomiting. He has no breathing difficulty, he denies chest pain. He has no back pain or tearing sensation. No urinary symptoms. No flank pain. No prior history of this. No sick contacts. He has no upper respiratory symptoms. Past Medical History - Allergies and Home Meds Allergies/Adverse Reactions: Allergies No Known Allergies Allergy (Verified 11/08/20 01:26) Primary Care Physician: Jhonny Centeno DO [Primary Care Provider] - Past Medical History: - - Hypercholesterolemia Surgical History: total hip arthroplasty - Left and right, tonsillectomy, - - History of foot surgery Smoking Status: Former smoker - Family History Maternal Family History: Reports: Heart Disease Paternal Family History: Reports: Cancer - prostate, Heart Disease Sibling Family History: Reports: Heart Disease - [place] at age 65 in brother Review of Systems All systems negative except as indicated General: Denies: Fever ENT: Denies: Rhinorrhea, Sore throat Cardiovascular: Denies: Chest pain Respiratory: Denies: Dyspnea, Cough Gastrointestinal: Reports: Abdominal pain, Nausea, Vomiting Genitourinary: Denies: Dysuria Musculoskeletal: Denies: Myalgias, Neck pain, Back pain Skin: Denies: Rash Neurological: Denies: Headache, Weakness Endocrine: Denies: Polyuria Hematologic: Denies: Easy bruising Physical Exam Vital Signs/Narrative: Vital Signs Temp Pulse Resp BP Pulse Ox 11/08/20 01:39 97.6 F L 53 L 17 180/88 H 97 11/08/20 01:28 97.6 F L 55 L 18 181/89 H 97 General: - - Patient appears in slight distress Head: Normocephalic Eyes: Perrl ENT: - - Slightly dry mucous membranes Cardiovascular: Regular rate, Regular rhythm, No murmurs Respiratory: No distress, CTA bilaterally Abdomen: Soft, - - There is epigastric tenderness to palpation. There is no right upper quadrant pain. Negative Zambrano's. No lower abdominal pain. No guarding or rebound. Back: Nontender, Normal Inspection Extremities: Nontender, No edema Skin: Normal color, No rash Neurological: Normal Strength, Normal Sensation Psychological: Normal affect Diagnostic/Tx/Re-eval - Medical Decision Making Has a normal ED work-up. He appears well CT of the abdomen and pelvis is unremarkable, because of the epigastric pain I did do an EKG and troponin which were also unremarkable. After IV fluids and antiemetics is significantly improved. He wishes to be discharged I believe this is reasonable he appears well and his vitals are normal other than mild hypertension. ED Disposition - Plan for ED Patient: Disposition: Home or Assisted Living Diagnosis: Epigastric pain Instructions: ED Epigastric Pain (Uncertain Cause) Prescriptions: Ondansetron [Zofran Odt] 4 mg PO Q8H PRN PRN #10 tab PRN Reason: Nausea Prescription Printed Referrals: Jhonny Centeno DO [Primary Care Provider] - 3-5 Days
[2020-11-08 02:11] LABS: ALB/GLOB Ratio 1.3 RATIO (0.9-2.4); AST(SGOT) 15 U/L (15-37); Alanine Aminotransfer ALT/SGPT 30 U/L (16-61); Alkaline Phosphatase 62 U/L (45-117); Anion Gap 7 (5-15); BUN 19 mg/dL (7-18); BUN/Creat Ratio 21.6 RATIO (10-20); Calcium,Total 8.4 mg/dL (8.5-10.1); Chloride 108 mmol/L (98-107); Creatinine, Serum 0.88 mg/dL (0.70-1.30); EST Glomerular Filtration Rate 91 mL/min (>60); Est Glom Filt Rate - Afr Amer 111 mL/min (>60); Estimated Creatinine Clearance 77.73 ml/min; Globulin 3.1 g/dL (2.2-4.2); Glucose 131 mg/dL (74-106); Lipase 118 U/L (73-393); Potassium 3.5 mmol/L (3.5-5.1); Protein, Total 7.1 g/dL (6.4-8.2); Sodium Level 142 mmol/L (136-145)
[2020-11-08 03:32] VITALS: BP 138/74; PULSE 58; RESP 16; O2SAT 96
== END 2020-11-08 03:32 | disposition home or self-care (01) ==
PROVIDERS: Emergency Provider Emergency Medicine; PCP Family Medicine
DX: R10.13 Epigastric pain (principal); R11.2 Nausea with vomiting, unspecified; E78.00 Pure hypercholesterolemia, unspecified; Z79.899 Other long term (current) drug therapy; Z87.891 Personal history of nicotine dependence
CPT/HCPCS: 74176; 80053; 83690; 84484; 85025; 87426; 93005; 96361; 96374; 99285; A4216

== ENCOUNTER → 2020-12-23 14:49 | Outpatient (CLI) | payer MEDICARE, OTHER, SELFPAY ==
--- NOTE | 2020-12-23 14:52 | CT_ITS ---
STUDY: CT BRAIN WITHOUT CONTRAST REASON FOR EXAM: Male, 70 years old. DIZZY X 2 MONTHS RADIATION DOSAGE (If Supplied By Facility): CTDIvol = ( 60.81 ) mGy, DLP = ( 1112.69 ) mGycm TECHNIQUE: Transaxial CT imaging of the brain was performed without administration of intravenous contrast material. Individualized dose optimization techniques were used for this CT. COMPARISON: Comparison is made with prior study 07/29/2019. FINDINGS: Normal soft tissue structures. Normal calvarium. Normal size ventricles and extra-axial spaces for the patient''s age. Normal white matter tracts of the cerebral hemispheres. Normal basal ganglia and thalami. Normal brainstem. Normal cerebellum. There is no intracranial hemorrhage. There are no findings of an acute ischemic infarction. Opacification of the left axillary sinus. CT/Brain/Head without Contrast IMPRESSION: Normal unenhanced CT scan of the brain. Opacification of the left maxillary sinus. Electronically Signed: Caio Carey MD at 15:20 EST , Service support ,
== END ==
PROVIDERS: PCP Family Medicine; Referring Provider Family Medicine; Visit Provider Family Medicine
DX: R42 Dizziness and giddiness (principal); R11.2 Nausea with vomiting, unspecified; Z86.73 Personal history of transient ischemic attack (TIA), and cerebral infarction without residual deficits
CPT/HCPCS: 70450

== ENCOUNTER 2023-12-28 07:19 | Emergency (ER) | payer MEDICARE, OTHER, SELFPAY ==
[2023-12-28 07:20] VITALS: BP 184/94; PULSE 66; RESP 16; TEMP 36.4; O2SAT 98; BMI 29.0
--- NOTE | 2023-12-28 08:00 | RAD_ITS ---
EXAM: XR LUMBOSACRAL SPINE, 2 OR 3 VIEWS CLINICAL INDICATION: Sciatica, pain TECHNIQUE: Frontal and lateral views of the lumbar spine and sacrum. COMPARISON: No relevant prior studies available. FINDINGS: VERTEBRAE: Mild dextroscoliosis of the lumbar spine. Preserved vertebral body height. No fracture. No spondylolisthesis. No significant facet arthropathy. DISC SPACES: No acute findings. Disc spaces are maintained. GASTROINTESTINAL TRACT: Unremarkable as visualized. Included bowel gas pattern is non-obstructive. RAD/Lumbar Spine 2 or 3 Views IMPRESSION: No acute findings in the lumbar spine. Electronically Signed: Adriel Sepulveda MD at 9:37 EST ,
--- NOTE | 2023-12-28 08:01 | EDS_ITS ---
HPI History of Present Illness Chief Complaint: Back Narrative Narrative: 73-year-old male past medical history of osteoarthritis, bilateral hip TRUPTI, hypercholesterolemia and hypertension presents with pain in his right buttocks radiating down his right leg that has had since Saturday, approximately 4 days ago. He denies any fevers or chills, no nausea or vomiting. No saddle anesthesia, no problems with bowel or bladder/loss of bowel or bladder. He denies any injury as well. He states has had problems with back pain in the past for which she will take Tylenol, but that is no longer working for him. The fact that his sharp pain radiated down his right leg laterally was new for him. Sometimes when he sits in certain positions, it makes it uncomfortable for him. While he denies any midline back pain, he has pain in his right buttocks when he sits. PFSH PFSH Home Medications acetaminophen 650 mg tablet,extended release 650 mg PO DAILY PRN PRN Pain Score 1-08/1307/29/19 [History Last Taken 07/29/19] aspirin 81 mg chewable tablet 81 mg PO DAILY@0800 07/30/19 [Rx Last Taken Unknown] atorvastatin 40 mg tablet 40 mg PO QHS #30 tabs 07/30/19 [Rx Last Taken Unknown] ondansetron 4 mg disintegrating tablet 4 mg PO Q8H PRN PRN Nausea #10 tabs 11/08/20 [Rx Last Taken Unknown] lisinopril 20 mg tablet 20 mg PO DAILY 12/28/23 [History Last Taken Unknown] pantoprazole 20 mg tablet,delayed release 20 mg PO DAILY 12/28/23 [History Last Taken Unknown] Allergy/AdvReac Type Severity Reaction Status Date / Time No Known Allergies Allergy Verified 12/28/23 07:19 Social History Smoking Status: Never smoker ROS ROS ED ROS Narrative Constitutional: No fever, no chills. HEENT: No sore throat. No neck pain. No loss of vision. No rhinorrhea. Cardiovascular: No chest pain. No palpitations. No pedal edema. Respiratory: No cough, no shortness of breath. Abdominal: No abdominal pain. No nausea. No vomiting. Genitourinary: No dysuria. No hematuria. Musculoskeletal: Right buttocks pain. No lumbar pain. Pain radiating down right side of leg towards level of knee. Neurologic: No headaches. No dizziness. No lightheadedness. No saddle anesthesia. No loss of bowel or bladder. Skin: No rash. No change in color. Psychiatric: No depression. No anxiety. EXAM Physical Exam Narrative Exam Narrative: Afebrile. Vital signs noted. HEENT: Normocephalic. Atraumatic. PERRL, EOMI. Neck soft and supple. No point tenderness or step off. Cardiovascular: Regular rate and rhythm. No murmurs, rubs, or gallops appreciated. Respiratory: No tachypnea. Lungs clear to auscultation bilaterally. Gastrointestinal: Abdomen soft, nontender, with normoactive bowel sounds. No rebound or guarding. Neurological: Awake. Alert. Nonfocal, nonlateralizing. EHL intact bilaterally. Able to sit up without difficulty. DTRs equal and symmetric, patellar. Skin: No rash. Normal color. No pallor. Musculoskeletal: No pedal edema. Full range of motion extremities. No midline tenderness, no lumbar tenderness. Mild tenderness in right sciatic notch. Const Vital Signs: 12/28/23 07:20 Temperature 97.6 F L Temperature Source Temporal Pulse Rate 66 Respiratory Rate 16 Blood Pressure 184/94 H Blood Pressure Mean 124 Pulse Ox 98 Oxygen Delivery Method Room Air MDM MDM MDM Narrative Medical decision making narrative: In the differential diagnosis is lumbar radiculopathy from spinal stenosis versus DJD of the spine versus sciatica versus piriformis syndrome. As the patient has no red flag signs for cauda equina, I do not feel he requires MRI imaging. He was administered Toradol 30 mg intramuscularly and a one-time dose of Norflex 60 mg intramuscularly. X-rays were obtained of the lumbar spine to help rule out compression fracture. X-rays of the lumbar spine interpreted by myself independently show no evidence of an acute fracture/compression fracture. I reviewed the radiology report which confirms my independent interpretation. After Toradol and Norflex, he states he was able to get up and walk around and feels improved. At this point in time, I do feel that he can take [id number] medications for his sciatica. I also suspect he may have more of a piriformis syndrome. Regardless, he was told he may need physical therapy and that he should follow- up with his primary care provider in 3 to 5 days. I feel he be discharged safely home and that he does not require observation at this time. Return instructions to the emergency department were reviewed. Disposition is discharged home in stable condition. History & Record Review Discussion w/independent historian: Patient and Family Radiography Diagnostic Testing: Clinical Impression(s) from Imaging Studies Lumbar Spine X-Ray 12/28/23 08:00 IMPRESSION: No acute findings in the lumbar spine. Electronically Signed: Adriel Sepulveda MD at 9:37 EST , Discharge Plan Triage Chief Complaint: Back ED Provider: Ardiel Aly Dx/Rx/DC Orders Clinical Impression: Sciatica of right side, Piriformis syndrome of right side Instructions: ED Sciatica Prescriptions: No Action acetaminophen 650 MG tablet extended release 650 mg PO DAILY PRN PRN (Reason: Pain Score 1-10/10) aspirin 81 MG tablet,chewable 81 mg PO DAILY@0800 0RF atorvastatin 40 MG tablet 40 mg PO QHS Qty: 30 0RF ondansetron 4 MG tablet 4 mg PO Q8H PRN PRN (Reason: Nausea) Qty: 10 0RF lisinopril 20 mg tablet 20 mg PO DAILY pantoprazole 20 mg tablet,delayed release (DR/EC) 20 mg PO DAILY Primary Care Provider: Jhonny Centeno Referrals: Jhonny Centeno, [Primary Care Provider] - 3-5 Days Activity Restrictions/Additional Instructions: Take [id number] Tylenol or ibuprofen as needed for pain. Follow-up with your primary care provider as you may need physical therapy for your sciatica. Disposition Disposition: Home, Self Care
[2023-12-28] MEDS: Ketorolac 30 MG/ML Syringe IM (08:29)
[2023-12-28] MEDS: Orphenadrine 60 MG/2 ML Ampul IM (08:30)
--- OUTSIDE RECORDS SUMMARY | 2023-12-28 08:33 | XMS RPT_ITS | CCD ---
Author Name Unknown Address [address] [place] [address] Organization [facility] Care Team Providers Care Senior Linux Systems Administrator Name Role Phone ELLIE PATRICK Unavailable Unavailable FAHEEM FONTAINE Unavailable Unavailable ELLIE PATRICK Unavailable Unavailable REFERRING, PHY WO ID Unavailable Unavailable ELLIE PATRICK Unavailable Unavailable FAHEEM FONTAINE Unavailable Unavailable Problems Active Problems Problem Classification Problem Date Documented Da te Episodic/Chronic Unclassified (1 source) Unknown / UNK(Unknown) Onset: 05-14-2017 Past or Other Problems Problem Classification Problem Date Documented Da te Episodic/Chronic Unclassified (1 source) LBP Onset: 05-14-2017 Results Test Name Value Interpretation Reference Range Facil ity Encounters Encounter Date Encounter Type Care Provider Facility Start: 05-14-2017 End: 05-31-2017 Ambulatory ELLIE PATRICK Facility:B Payers Date Payer Category Payer Medicare [id number] 2014 Unknown [id number] Summary Purpose Family History No Family History Records FoundNo Family History Records FoundNo Family History Records Found Advance Directives No Advanced Directives Records FoundNo Advanced Directives Records FoundNo Advanced Directives Records Found Additional Source Comments (unrecognized sect ion and content) No Status Records FoundNo Status Records FoundNo Status Records Found INFORMATION SOURCE (unrecogn ized section and content) DATE CREATED AUTHOR AUTHOR'S ORGANIZ ATION 04/30/2018 [facility] DATE CREATED AUTHOR AUTHOR'S ORGANIZ ATION 04/17/2019 [facility] FOR RECORDS PERTAINING TO PATIENTS WHO ARE OR HAVE BEEN ENROLLED IN A CHEMICAL DEPENDENCY/SUBSTANCEABUSE PROGRAM, SOME INFORMATION MAY BE OMITTED. This clinical summary was aggregated from multiple sources. Caution should be exercised in using it in the provision of clinical care. This summary normalizes information from multiple sources, and as a consequence, information in this document may materially change the coding, format and clinical context of patient data. In addition, data may be omitted in some cases. CLINICAL DECISIONS SHOULD BE BASED ON THE PRIMARY CLINICAL RECORDS. [facility]. provides no warranty or guarantee of the accuracy or completeness of information in this document.
[2023-12-28 10:10] VITALS: BP 152/81; PULSE 69; RESP 16; TEMP 36.8; O2SAT 98
== END 2023-12-28 10:10 | disposition home or self-care (01) ==
PROVIDERS: Emergency Provider Emergency Medicine; PCP Family Medicine; Visit Provider Emergency Medicine
DX: M54.31 Sciatica, right side (principal); E78.00 Pure hypercholesterolemia, unspecified; I10 Essential (primary) hypertension; Z79.82 Long term (current) use of aspirin; Z79.899 Other long term (current) drug therapy
CPT/HCPCS: 72100; 96372; 99282

== ENCOUNTER → 2024-03-09 | Outpatient (CLI) | payer MEDICARE, OTHER, SELFPAY ==
[2024-03-09 10:31] LABS: Absolute Lymphocyte Count 1.91 X10^3/uL (0.83-4.51); Basophil# 0.06 X10^3/uL; Basophil% 0.9 % (0-1); Eosinophil# 0.07 X10^3/uL; Eosinophils% 1.1 % (0-5); Hematocrit 46.6 % (40-54); Hemoglobin 15.8 g/dL (13.0-16.5); Lymphocyte # 1.91 X10^3/ul (0.83-4.51); Lymphocyte % 29.2 % (19-41); Mean Corp Hgb Conc 33.9 g/dL (32-36); Mean Corpuscular Hgb 29.9 pg (27.0-32.0); Mean Corpuscular Volume 88.3 fL (80-94); Mean Platelet Vol. 8.8 fl (6.2-12.0); Monocyte# 0.48 X10^3/uL; Monocyte% 7.3 % (0-10); NRBC Flagged by Analyzer 0 % (0-5); Neutrophil # 3.99 X10^3/uL (2.7-7.7); Platelet Count 227 K/mm3 (150-450); RBC Distribution Width CV 12.2 % (11.6-14.6); RBC Distribution Width SD 39.7 fl (35.1-43.9); Red Blood Count 5.28 M/mm3 (4.6-6.2); White Blood Count 6.5 K/mm3 (4.4-11.0)
[2024-03-09 11:09] LABS: Hemoglobin A1c 5.7 % (3.8-5.6)
[2024-03-09 11:24] LABS: ALB/GLOB Ratio 1.1 RATIO (0.9-2.4); AST(SGOT) 18 U/L (15-37); Alanine Aminotransfer ALT/SGPT 25 U/L (16-61); Albumin, Serum 3.9 g/dL (3.2-5.0); Alkaline Phosphatase 74 U/L (45-117); Anion Gap 7 (5-15); BUN 17 mg/dL (7-18); BUN/Creat Ratio 18.8 RATIO (10-20); Calcium,Total 8.9 mg/dL (8.5-10.1); Chloride 110 mmol/L (98-107); Cholesterol 106 mg/dL (200); Creatinine, Serum 0.91 mg/dL (0.70-1.30); EST Glomerular Filtration Rate 88 mL/min (>60); Est Glom Filt Rate - Afr Amer 106 mL/min (>60); Globulin 3.4 g/dL (2.2-4.2); Glucose 126 mg/dL (74-106); High Density Lipoprotein 33 mg/dL; PSA,Total - Annual Screen 0.93 ng/mL (0.00-4.00); Protein, Total 7.3 g/dL (6.4-8.2); Sodium Level 139 mmol/L (136-145); Triglycerides 69 mg/dL; Very Low Density Lipoprotein 14 mg/dL (5-40)
== END | disposition home or self-care (01) ==
PROVIDERS: PCP Family Medicine; Referring Provider Family Medicine; Visit Provider Family Medicine
DX: Z12.5 Encounter for screening for malignant neoplasm of prostate (principal); I10 Essential (primary) hypertension; K21.9 Gastro-esophageal reflux disease without esophagitis; E78.2 Mixed hyperlipidemia; R73.03 Prediabetes
CPT/HCPCS: 36415; 80053; 80061; 83036; 84153; 85025; G0103